=== PATIENT | male | born 1955 | race Caucasian/White ===

== ENCOUNTER 2024-04-23 08:20 | Outpatient (CLI) | payer MEDICARE | END 2024-04-23 08:21 | disposition home or self-care (01) | LOC: CSHULT 08:20 | PROVIDERS: ATTEND Family Medicine | DX: R17 Unspecified jaundice (principal); R74.8 Abnormal levels of other serum enzymes; K75.81 Nonalcoholic steatohepatitis (NASH); K80.20 Calculus of gallbladder without cholecystitis without obstruction; K82.8 Other specified diseases of gallbladder | CPT/HCPCS: 76705 ==

== ENCOUNTER 2024-09-21 08:29 | Outpatient (CLI) | payer MEDICARE ==
[2024-09-21] MEDS ORDERED: Iopamidol 370 76% 100 ML VIAL ONE (10:25)
== END 2024-09-21 08:30 | disposition home or self-care (01) ==
LOC: CSHCT 08:29
PROVIDERS: ATTEND Internal Medicine Cardiovascular Disease
DX: R06.00 Dyspnea, unspecified (principal); I27.20 Pulmonary hypertension, unspecified; I25.10 Atherosclerotic heart disease of native coronary artery without angina pectoris; I25.84 Coronary atherosclerosis due to calcified coronary lesion
CPT/HCPCS: 71275; 82565

== ENCOUNTER 2024-10-10 09:07 | Outpatient (CLI) | payer MEDICARE ==
[2024-10-10] MEDS ORDERED: Iopamidol 300 61% 100 ML VIAL FS ONE (09:53)
== END 2024-10-10 09:08 | disposition home or self-care (01) ==
LOC: CSHCT 09:07
PROVIDERS: ATTEND Internal Medicine Cardiovascular Disease
DX: I27.20 Pulmonary hypertension, unspecified (principal)
CPT/HCPCS: 36415; 74177; 82565; Q9967